=== PATIENT | female | born 1965 | race Caucasian/White ===

== ENCOUNTER 2017-02-25 05:11 | Day surgery (SDC) | payer BC ==
[~2017-02-25] VITALS: Ht 157.5 cm; Wt 105.4 kg
[~2017-02-25 05:11] MED LIST: DICLOFENAC SODI75 MG PO; FLEXERIL10 MG PO; NEURONTIN800 MG PO; TYLENOL EXTRA500 MG PO; ULTRAM50 MG PO; VITAMIN D-32000 UNI2 PO; VOLTAREN 1% GE100 GM TP
[2017-02-25 06:01] VITALS: BP 124/66
[2017-02-25] MEDS ORDERED: OXYCODONE-APAP1 EACH PO (10:39)
[2017-02-25 14:26] LABS: INTERNAL CONTROL VALID? YES
[2017-02-25 16:18] VITALS: BP 183/79
[2017-02-25 19:29] VITALS: BP 174/84
[2017-02-26 00:11] VITALS: BP 167/87
[2017-02-26 00:30] VITALS: BP 140/85
[2017-02-26 07:38] VITALS: BP 148/73
[2017-02-26 12:00] VITALS: BP 148/73
[2017-02-26 15:49] VITALS: BP 141/78
== END 2017-02-26 18:00 | disposition home or self-care (01) ==
LOC: SDC 05:11 → ENRESERV 11:21 → CANRESERV 11:21 → ENRESERV 11:22 → 3EAST 11:45 → SDC 11:47 → ENRESERV 12:15 → 3EAST 02-26 18:00
PROVIDERS: Neurological Surgery
DX: M47.22 Other spondylosis with radiculopathy, cervical region (principal); M50.121 Cervical disc disorder at C4-C5 level with radiculopathy; M79.7 Fibromyalgia; Z88.2 Allergy status to sulfonamides; G47.30 Sleep apnea, unspecified; I10 Essential (primary) hypertension; Z82.49 Family history of ischemic heart disease and other diseases of the circulatory system
CPT/HCPCS: 72040; 76000; 84703; 86900; 86901; 93005; C1713; C1821; G0378; J0131; J0330; J0690; J1100; J1170; J2250; J2405; J2550; J2710; J3010